=== PATIENT | male | born 1965 | race Caucasian/White ===

== ENCOUNTER 2017-06-02 05:48 | Emergency (ER) | payer OTHER ==
[~2017-06-02] VITALS: Ht 193 cm; Wt 81.8 kg
[2017-06-02] MEDS ORDERED: BACTRIM DS 8001 TAB PO (06:21)
[2017-06-02 06:38] VITALS: BP 128/91; PULSE 97; TEMP 98
[2017-06-05] MEDS ORDERED: CEPHALEXIN500 M1 PO (15:37)
== END 2017-06-02 06:39 | disposition home or self-care (01) ==
LOC: COL.ER 05:48
DX: L02.414 Cutaneous abscess of left upper limb (principal); L03.114 Cellulitis of left upper limb; F17.210 Nicotine dependence, cigarettes, uncomplicated

== ENCOUNTER 2020-08-11 16:48 | Emergency (ER) | payer OTHER ==
[~2020-08-11] VITALS: Ht 193 cm; Wt 81.8 kg
[~2020-08-11 16:48] MED LIST: BACTRIM DS 8001 TAB PO; CEPHALEXIN500 M1 PO
[2020-08-11 18:48] VITALS: BP 144/68; PULSE 84; TEMP 98
== END 2020-08-11 18:47 | disposition home or self-care (01) ==
LOC: COL.ER 16:48
DX: S62.306A Unspecified fracture of fifth metacarpal bone, right hand, initial encounter for closed fracture (principal); V48.6XXA Car passenger injured in noncollision transport accident in traffic accident, initial encounter

== ENCOUNTER 2021-08-24 13:12 | Emergency (ER) | payer OTHER ==
[~2021-08-24] VITALS: Ht 193 cm; Wt 79.5 kg
[2021-08-24 14:25] VITALS: TEMP 98.3
[2021-08-24 15:14] LABS: BASO # 0.1 K/mm3 (0.0-0.2); BASO % 1.4 % (0.0-2.0); EOS # 0.1 K/mm3 (0.0-0.7); EOS % 1.4 % (0.0-4.0); GRAN % 68.6 % (42.2-75.2); LYMPH # 1.3 K/mm3 (1.2-3.4); LYMPH % 22.3 % (20.0-51.0); MEAN CELL VOLUME 79 fl (80.0-100.0); MEAN CORPUSCULAR HGB CONC 32 g/dl (33.0-37.0); MEAN PLATELET VOLUME 9.3 fl (7.4-10.4); MONO # 0.3 K/mm3 (0.1-0.6); MONO % 5.8 % (1.7-9.3); PLATELET COUNT 336 K/mm3 (130-400); RED BLOOD COUNT 3.53 M/mm3 (4.20-5.60); REDCELL DISTRIBUTION WIDTH-CV 21.8 % (11.5-14.5)
[2021-08-24 15:32] LABS: HEMATOCRIT 27.7 % (42.0-52.0); HEMOGLOBIN 8.9 g/dl (13.5-18.0); MEAN CORPUSCULAR HEMOGLOBIN 25 pg (27-31)
[2021-08-24 15:37] LABS: ALBUMIN 2.9 gm/dL (3.5-5.0); BILIRUBIN,TOTAL 0.8 mg/dL (0.2-1.2); C-REACTIVE PROTEIN 0.33 mg/dL (0.00-0.50); CALCIUM 8.2 mg/dL (8.4-10.2); CREATININE, serum 0.68 mg/dL (0.72-1.25); POTASSIUM 3.2 mmol/L (3.5-4.5); TOTAL PROTEIN 7.2 gm/dL (6.2-8.1)
[2021-08-24 16:03] VITALS: BP 143/96
[2021-08-24] MEDS ORDERED: MEDROL 4MG DOSPA4 MG PO (16:04)
[2021-08-24] MEDS ORDERED: NORCO 325 MG-51 TAB PO (16:04)
[2021-08-24 16:13] VITALS: PULSE 98
== END 2021-08-24 16:13 | disposition home or self-care (01) ==
LOC: COL.ER 13:12
PROVIDERS: Family Medicine
DX: G89.29 Other chronic pain (principal); M54.50 Low back pain, unspecified; D64.9 Anemia, unspecified
CPT/HCPCS: J1100; J2360; J7030

== ENCOUNTER 2021-09-17 11:38 | Inpatient (IN) | payer OTHER ==
[~2021-09-17] VITALS: Ht 193 cm; Wt 71.4 kg
[~2021-09-17 11:38] MED LIST changes: +MEDROL 4MG DOSPA4 MG PO; +NORCO 325 MG-51 TAB PO
[2021-09-17 12:10] LABS: BASO % 0.4 % (0.0-2.0); EOS % 0.4 % (0.0-4.0); GRAN # 5.7 K/mm3 (1.4-6.5); GRAN % 75.2 % (42.2-75.2); HEMOGLOBIN 11.3 g/dl (13.5-18.0); LYMPH # 1.1 K/mm3 (1.2-3.4); LYMPH % 14.6 % (20.0-51.0); MEAN CELL VOLUME 83 fl (80.0-100.0); MEAN CORPUSCULAR HEMOGLOBIN 27 pg (27-31); MEAN CORPUSCULAR HGB CONC 33 g/dl (33.0-37.0); MEAN PLATELET VOLUME 10.6 fl (7.4-10.4); MONO # 0.7 K/mm3 (0.1-0.6); MONO % 8.7 % (1.7-9.3); PLATELET COUNT 145 K/mm3 (130-400); REDCELL DISTRIBUTION WIDTH-CV 23.3 % (11.5-14.5)
[2021-09-17 12:16] LABS: HEMATOCRIT 34.7 % (42.0-52.0)
[2021-09-17 12:28] LABS: ALANINE AMINOTRANSFERASE 65 U/L (0-55); ALBUMIN 3.1 gm/dL (3.5-5.0); ALKALINE PHOSPHATASE 360 U/L (40-150); ANION GAP 25 mmol/L (7-16); AST,SGOT 206 U/L (5-34); BILIRUBIN,TOTAL 1.5 mg/dL (0.2-1.2); BLOOD UREA NITROGEN 10 mg/dL (8-26); CALCIUM 8.9 mg/dL (8.4-10.2); CARBON DIOXIDE 19 mmol/L (22-29); CHLORIDE 93 mmol/L (98-107); CREATININE, serum 0.97 mg/dL (0.72-1.25); GLUCOSE 171 mg/dL (70-99); LIPASE 97 U/L (8-78); POTASSIUM 3.3 mmol/L (3.5-4.5); SODIUM 137 mmol/L (136-145); TOTAL PROTEIN 7.9 gm/dL (6.2-8.1)
[2021-09-17 12:36] LABS: TROPONIN-I < 0.010 ng/mL (0.00-0.033)
[2021-09-17 17:10] LABS: INR 1.1 (0.8-3.0); PROTHROMBIN TIME 12.1 SECONDS (9.7-12.8)
--- NOTE | 2021-09-17 17:58 | NUR ---
Patient to room 311 by bed from the ED. A&Ox4. VSS. IV CDI, fluids infusing. Visible tremors in upper extremities, unsteady on feet, 2xassist nursing staff. Nurse oriented the patient to location, room and call light. Detox protocol in place. Seizure precautions in place. Denies pain and discomfort. Patient NPO and verbalizes an understanding. No further needs expressed. Call light within reach. Bed alarm on
[2021-09-17 20:20] VITALS: BP 145/95; PULSE 90; TEMP 97.9
[2021-09-17 20:22] LABS: HEMATOCRIT 26.7 % (42.0-52.0); HEMOGLOBIN 8.8 g/dl (13.5-18.0)
[2021-09-17 22:14] VITALS: BP 142/94; PULSE 110; TEMP 98.4
--- NOTE | 2021-09-17 22:49 | NUR ---
Patient assessed around 1944. Alert and oriented. Complained of level 9 pain to abdomen, and given PRN Morphine for pain as requested. Patient having magnesium and potassium replaced per orders. Started Zosyn late, and called pharmacy to adjust times. Around 2199, patient requesting ice chips. Called EZEQUIEL Calvillo ok for small amount. Patient on alcohol detox protocol. Given Ativan once so far this shift for scoring 5 per protocol. Patient voices no questions, needs, or concerns at this time. In bed with call light within reach. Bed alarm on.
[2021-09-18] VITALS (12 sets, daily range): BP systolic 117–150; BP diastolic 76–100; PULSE 97–115; TEMP 96–98.4
[2021-09-18 02:25] LABS: HEMATOCRIT 26.3 % (42.0-52.0); HEMOGLOBIN 8.5 g/dl (13.5-18.0)
--- NOTE | 2021-09-18 05:41 | NUR ---
Continues on detox protocol, and recieved PRN Ativan during the night per orders. Receive PRN Morphine as requested during the night for abdominal pain. Voices no further questions, needs, or concerns at this time. In bed with call light within reach. Bed alarm on.
[2021-09-18 05:54] LABS: BASO % 0.3 % (0.0-2.0); EOS % 0.7 % (0.0-4.0); GRAN # 4.2 K/mm3 (1.4-6.5); GRAN % 72.4 % (42.2-75.2); LYMPH % 17.8 % (20.0-51.0); MEAN CELL VOLUME 84 fl (80.0-100.0); MEAN CORPUSCULAR HGB CONC 32 g/dl (33.0-37.0); MEAN PLATELET VOLUME 11.2 fl (7.4-10.4); MONO # 0.5 K/mm3 (0.1-0.6); MONO % 8.5 % (1.7-9.3); PLATELET COUNT 115 K/mm3 (130-400); RED BLOOD COUNT 3.29 M/mm3 (4.20-5.60); REDCELL DISTRIBUTION WIDTH-CV 23.2 % (11.5-14.5)
[2021-09-18 06:13] LABS: ALBUMIN 2.4 gm/dL (3.5-5.0); BILIRUBIN,TOTAL 1.3 mg/dL (0.2-1.2); CALCIUM 7.5 mg/dL (8.4-10.2); CREATININE, serum 0.59 mg/dL (0.72-1.25); MAGNESIUM 1.9 mg/dL (1.6-2.6); POTASSIUM 3.8 mmol/L (3.5-4.5); TOTAL PROTEIN 5.7 gm/dL (6.2-8.1)
[2021-09-18 06:16] LABS: HEMATOCRIT 27.6 % (42.0-52.0); HEMOGLOBIN 8.7 g/dl (13.5-18.0); MEAN CORPUSCULAR HEMOGLOBIN 26 pg (27-31)
--- NOTE | 2021-09-18 09:09 | NUR ---
Several visit attempts; Patient using telephone, Cold Storage Supervisor left card offering God's blessings and information regarding the availability of spiritual care at [facility].
[2021-09-18 11:02] LABS: RETIC # 0.05 M/mm3 (0.02-0.16); RETIC % 1.4 % (0.5-3.52)
--- NOTE | 2021-09-18 12:57 | NUR ---
LINNEA LLOYD GAVE ORDER FOR CLD SINCE PT TOLERATING JELLO
[2021-09-18 17:34] LABS: HEMATOCRIT 26.8 % (42.0-52.0); HEMOGLOBIN 8.4 g/dl (13.5-18.0)
--- NOTE | 2021-09-18 18:12 | NUR ---
PT UNSTEADY WITH AMBULATION, IMPULSIVE, BED ALARM SET, ATIVAN GIVEN PER DETOX SCORE, PT WANTING TO LEAVE MULTIPLE TIMES FOR CIGARETTE, EXPLAINED NEED TO STAY FOR ANX TREATMENT AND DETOX TREATMENT, SUPPORTIVE OF THIS PLAN, UPDTATED ON PT CONDITION, PT TOLERATING PO CLD WELL, SOME NAUSEA, NO VOMITING, PAIN INC RECIEVING MORPHINE Q2H
--- NOTE | 2021-09-18 22:30 | NUR ---
Patient assessed around 1940. Alert, oriented, but forgetful/impulsive. Bed alarm on. Reports constant pain to abdomen. Received PRN Morphine for pain, as well as Ativan per detox protocol. Peripheral IV to left forearm with fluids running per orders. In bed with call light within reach. Bed alarm on.
[2021-09-19] VITALS (14 sets, daily range): BP systolic 132–153; BP diastolic 90–110; PULSE 94–138; TEMP 97.1–98.8
--- NOTE | 2021-09-19 05:14 | NUR ---
Continues on detox protocol. Received PRN Ativan per protocol, Morphine for pain to abdomen per orders, as well as Zofran for nausea per orders. Patient impulsive, unsteady on feet. Does not want staff to assist with going to the bathroom, but not aggitated or combative with staff. IV fluids continue per orders, as well as Zosyn. Patient did start hallucinating, seeing a mouse in the room. In bed with call light within reach. Bed alarm on.
--- NOTE | 2021-09-19 07:00 | NUR ---
Report received from Mackenzie MEHTA. PT in bed resting, wanted to get to bathroom, able to get up and ambulate but unsteady gait
[2021-09-19 09:01] LABS: BASO % 0.5 % (0.0-2.0); EOS # 0.2 K/mm3 (0.0-0.7); EOS % 2.1 % (0.0-4.0); GRAN # 5.6 K/mm3 (1.4-6.5); GRAN % 67.1 % (42.2-75.2); LYMPH % 23.9 % (20.0-51.0); MEAN CELL VOLUME 84 fl (80.0-100.0); MEAN CORPUSCULAR HGB CONC 32 g/dl (33.0-37.0); MEAN PLATELET VOLUME 11.4 fl (7.4-10.4); MONO # 0.5 K/mm3 (0.1-0.6); PLATELET COUNT 132 K/mm3 (130-400); REDCELL DISTRIBUTION WIDTH-CV 23.3 % (11.5-14.5)
[2021-09-19 09:03] LABS: HEMATOCRIT 30.2 % (42.0-52.0); HEMOGLOBIN 9.5 g/dl (13.5-18.0); MEAN CORPUSCULAR HEMOGLOBIN 26 pg (27-31)
--- NOTE | 2021-09-19 09:11 | NUR ---
Assessment charted. PT requesting PRN pain, nausea, CIWA meds. Provided per request. PT is able to naswer all orientation questions but is drowsy and lethargic and shakey, temors are noted. PT did ask me if I was done "riding my horse or donkey" but otherwise oriented. Pain is 8/10 to ABD. CLD tray ordered. IVF to LFA. WIll contineu willie oitor.
[2021-09-19 09:29] LABS: ALBUMIN 2.5 gm/dL (3.5-5.0); BILIRUBIN,TOTAL 1.4 mg/dL (0.2-1.2); CALCIUM 8.1 mg/dL (8.4-10.2); CREATININE, serum 0.61 mg/dL (0.72-1.25); POTASSIUM 3.8 mmol/L (3.5-4.5); TOTAL PROTEIN 6.3 gm/dL (6.2-8.1)
--- NOTE | 2021-09-19 18:38 | NUR ---
Pt has rested off and on most of shift. Reports pain at 8.5/10 whenever awake but often falls asleep when talking to me in the room. CIWA scores remain 8 or 9. Unsteady gait, will give report to nightshift nurse who willr esume care.
--- NOTE | 2021-09-19 22:02 | NUR ---
At beginning of shift, thomas aggitated and wanting to leave AMA, stating multiple times that he needed to have a cigarette. EZEQUIEL Calvillo notified and came to talk to patient. Risks of leaving AMA discussed. Patient called , and waited for her to come to hospital to talk to him. Patient given PRN Ativan for detox and Morphine per Karli around 1899. Patient does have nicotine patch one, and received order for nicotine gum. Given per orders. came in around 1944. Able to talk to patient and along with medication, started to rest in bed. Given Ativan again per protocol around 2129, as well as PRN Roxicodone as requested for pain per orders. Linens changed. Patient has not threatened to leave AMA anymore. In bed with call light within reach at this time. Bed alarm on.
[2021-09-20] VITALS (11 sets, daily range): BP systolic 123–143; BP diastolic 83–99; PULSE 102–133; TEMP 97.3–997.5
--- NOTE | 2021-09-20 05:50 | NUR ---
Continues on detox protocol, and received PRN Ativan per orders. Patient has received Roxicodone and Morphine for pain this shift. IV fluids continue per orders. Patient has not had any further comments about leaving AMA since beginning of shift. High fall risk precautions in place. In bed with call light within reach. Bed alarm on.
[2021-09-20 06:46] LABS: BASO % 0.2 % (0.0-2.0); EOS # 0.1 K/mm3 (0.0-0.7); EOS % 2.7 % (0.0-4.0); GRAN # 3.8 K/mm3 (1.4-6.5); GRAN % 73.9 % (42.2-75.2); LYMPH # 0.7 K/mm3 (1.2-3.4); LYMPH % 14.3 % (20.0-51.0); MEAN CELL VOLUME 84 fl (80.0-100.0); MEAN CORPUSCULAR HGB CONC 32 g/dl (33.0-37.0); MEAN PLATELET VOLUME 11.2 fl (7.4-10.4); MONO # 0.4 K/mm3 (0.1-0.6); MONO % 8.5 % (1.7-9.3); PLATELET COUNT 116 K/mm3 (130-400); RED BLOOD COUNT 3.16 M/mm3 (4.20-5.60); REDCELL DISTRIBUTION WIDTH-CV 23.1 % (11.5-14.5)
[2021-09-20 06:54] LABS: HEMATOCRIT 26.4 % (42.0-52.0); HEMOGLOBIN 8.5 g/dl (13.5-18.0); MEAN CORPUSCULAR HEMOGLOBIN 27 pg (27-31)
[2021-09-20 06:58] LABS: ALBUMIN 2.2 gm/dL (3.5-5.0); BILIRUBIN,TOTAL 1.2 mg/dL (0.2-1.2); CALCIUM 7.6 mg/dL (8.4-10.2); CREATININE, serum 0.58 mg/dL (0.72-1.25); MAGNESIUM 1.5 mg/dL (1.6-2.6); POTASSIUM 3.8 mmol/L (3.5-4.5); TOTAL PROTEIN 5.5 gm/dL (6.2-8.1)
--- NOTE | 2021-09-20 08:04 | NUR ---
PATIENT REFUSES TO WEAR SCDS FOR VTE.
[2021-09-21] VITALS (13 sets, daily range): BP systolic 121–145; BP diastolic 79–99; PULSE 104–118; TEMP 97.8–99
--- NOTE | 2021-09-21 05:23 | NUR ---
PATIENT CALM AND COOPERATIVE THROUGHOUT THE SHIFT. ASSISTED PATIENT WITH A SHOWER. PT BRUSHED HIS TEETH, HIS SHAVED AND TRIMMED HIS FACIAL HAIR. PATIENT REPORTS HE IS FEELING MUCH BETTER AND MORE LIKE HIMSELF. CIWA SCORES THIS SHIFT HAVE BEEN 3-4. PATIENTS V/S STABLE AND HE HAS NOT BEEN REQUIRING IV ATIVAN PER CIWA PROTOCOL. HE HAS REPORTED PAIN IN HIS ABD AND GENERALIZED BODY ACHES AND HAS REQUIRED PRN OXY AND PRN MORPHINE.
[2021-09-21 06:31] LABS: MEAN CELL VOLUME 83 fl (80.0-100.0); MEAN CORPUSCULAR HGB CONC 32 g/dl (33.0-37.0); MEAN PLATELET VOLUME 11.1 fl (7.4-10.4); PLATELET COUNT 130 K/mm3 (130-400); RED BLOOD COUNT 3.25 M/mm3 (4.20-5.60); REDCELL DISTRIBUTION WIDTH-CV 23.5 % (11.5-14.5)
[2021-09-21 06:47] LABS: HEMATOCRIT 27.1 % (42.0-52.0); HEMOGLOBIN 8.7 g/dl (13.5-18.0); MEAN CORPUSCULAR HEMOGLOBIN 27 pg (27-31)
[2021-09-21 06:57] LABS: ALBUMIN 2.2 gm/dL (3.5-5.0); BILIRUBIN,TOTAL 1.4 mg/dL (0.2-1.2); CALCIUM 7.7 mg/dL (8.4-10.2); CREATININE, serum 0.55 mg/dL (0.72-1.25); MAGNESIUM 1.6 mg/dL (1.6-2.6); POTASSIUM 3.5 mmol/L (3.5-4.5); TOTAL PROTEIN 5.6 gm/dL (6.2-8.1)
--- NOTE | 2021-09-21 08:41 | NUR ---
Pt assessment complete. Pt is sitting up in bed upon entry, he is A/O x4. His breathing is even and unlabored on RA. Pt denies SOB. Reports back pain 8/10, PRN pain medication administered. Pt reports very mild N/V. Asking about increasing his diet. POC discussed with patient, verbalizes understanding. No needs at this time. Call light within reach.
--- NOTE | 2021-09-21 09:24 | NUR ---
Initial visit; Patient thanked Edger Feeder for stopping by and offering kindness and support. Edger Feeder will follow up.
--- NOTE | 2021-09-21 16:01 | NUR ---
*(LATE ENTRY)* SW met patient to complete intake assessment. When asked if the patient lived in [place] he responded with " well i live here now, how did you find me"? Patient confirms that his emergency contact is his Kathleen, but "i have water in my phone" and couldn't provide me with her phone number. Patient states that he is independent with his ADL's but reports that upon discharge he will need a cane. Patient states he has no oxygen needs at home. PCP is Jaky in [place] and he utilizes [facility] here in [place]. States he has not had any trouble affording his medications in the past but " i will now". Patient does not have a DPOA-HC established at this time. Planning on returning home post discharge. Discharge plan: Home
--- NOTE | 2021-09-21 18:30 | NUR ---
Pt reported intermittent pain through the day, to head, legs, abdomen. PRN pain medications administered. Pt scored intermittently per CIWA protocol. Rested comfortably between. IVF infusing. Bed alarm in place.
[2021-09-22] VITALS (9 sets, daily range): BP systolic 110–143; BP diastolic 78–91; PULSE 99–129; TEMP 97.4–99.5
--- NOTE | 2021-09-22 00:55 | NUR ---
AT 2336, TELE REP CALLS THIS NURSE TO REPORT TACHYCARDIA, PT AMBULATING AT TIME OF CALL. PT STABLE.
[2021-09-22 06:28] LABS: BASO % 0.3 % (0.0-2.0); EOS # 0.1 K/mm3 (0.0-0.7); EOS % 2.4 % (0.0-4.0); GRAN # 3.8 K/mm3 (1.4-6.5); LYMPH % 16.6 % (20.0-51.0); MEAN CELL VOLUME 86 fl (80.0-100.0); MEAN CORPUSCULAR HGB CONC 31 g/dl (33.0-37.0); MONO # 0.8 K/mm3 (0.1-0.6); MONO % 14.4 % (1.7-9.3); PLATELET COUNT 158 K/mm3 (130-400); RED BLOOD COUNT 3.13 M/mm3 (4.20-5.60); REDCELL DISTRIBUTION WIDTH-CV 23.5 % (11.5-14.5)
[2021-09-22 06:37] LABS: HEMATOCRIT 26.9 % (42.0-52.0); HEMOGLOBIN 8.3 g/dl (13.5-18.0); MEAN CORPUSCULAR HEMOGLOBIN 27 pg (27-31)
[2021-09-22 06:43] LABS: ALBUMIN 2.3 gm/dL (3.5-5.0); BILIRUBIN,TOTAL 1.2 mg/dL (0.2-1.2); CALCIUM 8.3 mg/dL (8.4-10.2); CREATININE, serum 0.54 mg/dL (0.72-1.25); POTASSIUM 4.2 mmol/L (3.5-4.5); TOTAL PROTEIN 5.7 gm/dL (6.2-8.1)
--- NOTE | 2021-09-22 08:00 | NUR ---
THE PATIENT IS AWAKE AND SITTING IN BED AT THIS TIME. NO FAMILY PRESENT AT THIS TIME. PAIN IS A 7/10, MEDICATIONS GIVEN PER MAR. THE PATIENT AGREES THAT WE NEED TO NOT USE THE IV MORPHINE DUE TO TRANSITIONING TO GO HOME. PT IS UNDERSTANDING AND WILLING TO WORK WITH IT.
--- NOTE | 2021-09-22 19:21 | NUR ---
This patient has had an uneventful day. CIWA scale has been 1-2 all shift. Pain managed with oral pain medications. Plan for patient to discharge in the morning.
[2021-09-23 02:30] VITALS: BP 143/70; PULSE 103; TEMP 98
--- NOTE | 2021-09-23 05:00 | NUR ---
PT REFUSED 0400 VITALS, THIS NURSE UNABLE TO SCORE CIWA. PT TRENDING LOW. STOOL OCCULT COLLECTED. SINCERE WATTS TRANSPORTED TO LAB AT 0500.
[2021-09-23 05:57] VITALS: BP 135/74; PULSE 103; TEMP 97.8
--- NOTE | 2021-09-23 06:14 | NUR ---
STOOL OCCULT POSITIVE. HOSPITALIST FOLLOWING.
[2021-09-23 06:23] LABS: BASO % 0.5 % (0.0-2.0); EOS # 0.1 K/mm3 (0.0-0.7); EOS % 1.6 % (0.0-4.0); GRAN # 4.1 K/mm3 (1.4-6.5); GRAN % 66.7 % (42.2-75.2); LYMPH # 0.9 K/mm3 (1.2-3.4); MEAN CELL VOLUME 83 fl (80.0-100.0); MEAN CORPUSCULAR HGB CONC 33 g/dl (33.0-37.0); MEAN PLATELET VOLUME 10.9 fl (7.4-10.4); MONO % 16.7 % (1.7-9.3); PLATELET COUNT 217 K/mm3 (130-400); RED BLOOD COUNT 3.29 M/mm3 (4.20-5.60); REDCELL DISTRIBUTION WIDTH-CV 22.4 % (11.5-14.5)
[2021-09-23 06:31] LABS: ALBUMIN 2.3 gm/dL (3.5-5.0); BILIRUBIN,TOTAL 1.5 mg/dL (0.2-1.2); CALCIUM 8.3 mg/dL (8.4-10.2); CREATININE, serum 0.52 mg/dL (0.72-1.25); TOTAL PROTEIN 6.2 gm/dL (6.2-8.1)
[2021-09-23 06:34] LABS: HEMATOCRIT 27.4 % (42.0-52.0); HEMOGLOBIN 8.9 g/dl (13.5-18.0); MEAN CORPUSCULAR HEMOGLOBIN 27 pg (27-31)
--- NOTE | 2021-09-23 07:24 | NUR ---
PT IS LAYING IN BED AT THIS TIME. REFUSED 0400 VITAL SIGNS. NO OTHER CONCERNS.
[2021-09-23 08:14] VITALS: BP 119/82; PULSE 111; TEMP 98.6
[2021-09-23] MEDS ORDERED: ZOFRAN ODT4 MG PO (09:24)
--- NOTE | 2021-09-23 10:26 | NUR ---
Distributor Advertising Material attended clinical rounds with the team and patient is ready for discharge home today. SW met with patient to discuss alcohol resources. Patient is interested and SW provided and reviewed alcohol resource guide. Patient states he also has good family supports and plans to stop drinking. Patient's states his drinking has gone on too long. Patient has a ride home today and no other questions or concerns.
[2021-09-23] MEDS ORDERED: ROXICODONE 55 MG/TAB PO (10:37)
[2021-09-23] MEDS ORDERED: DUO-KAPS1 CAP PO (10:38)
[2021-09-23] MEDS ORDERED: THIAMINE 1100 MG/TAB PO (10:38)
[2021-09-23] MEDS ORDERED: FOLIC ACID 11 MG/TA1 PO (10:38)
== END 2021-09-23 16:45 | disposition home or self-care (01) | DRG 439 ==
LOC: COL.ER 11:38 → MEDICAL 17:22
PROVIDERS: Internal Medicine; Nurse Practitioner Family; Physician Assistant; Student in an Organized Health Care Education/Training Program; ADMIT Student in an Organized Health Care Education/Training Program
DX: K85.20 Alcohol induced acute pancreatitis without necrosis or infection (principal); F10.139 Alcohol abuse with withdrawal, unspecified; K62.5 Hemorrhage of anus and rectum; E44.0 Moderate protein-calorie malnutrition; Z68.1 Body mass index [BMI] 19.9 or less, adult; I10 Essential (primary) hypertension; F17.210 Nicotine dependence, cigarettes, uncomplicated; J44.9 Chronic obstructive pulmonary disease, unspecified; E87.6 Hypokalemia; E83.42 Hypomagnesemia; K76.0 Fatty (change of) liver, not elsewhere classified; D64.9 Anemia, unspecified; I45.81 Long QT syndrome; Z20.822 Contact with and (suspected) exposure to COVID-19
CPT/HCPCS: 99223-AI; 99231-AI; 99232-AI; 99233-AI; 99239; C9113; J2060; J2270; J2405; J2543; J3411; J3475; J3480; J7030; Q9967

== ENCOUNTER 2021-11-11 09:31 | Day surgery (SDC) | payer OTHER ==
[~2021-11-11] VITALS: Ht 193 cm; Wt 75.4 kg
[~2021-11-11 09:31] MED LIST changes: +DUO-KAPS1 CAP PO; +FOLIC ACID 11 MG/TA1 PO; +ROXICODONE 55 MG/TAB PO; +THIAMINE 1100 MG/TAB PO; +ZOFRAN ODT4 MG PO
[2021-11-11 09:48] VITALS: BP 107/80; PULSE 105; TEMP 97.7
[2021-11-11] MEDS ORDERED: NEURONTIN300 MG/CAP PO (09:54)
[2021-11-11 11:05] VITALS: BP 107/78; PULSE 91; TEMP 97.2
--- NOTE | 2021-11-11 11:05 | NUR ---
PT TO BAY 5 FROM PROCEDURE ROOM. RECEIVED REPORT FROM ENDO RN. VS OBTAINED. ORIENTED PT TO ROOM AND CALL LIGHT. VERBALIZED UNDERSTANDING. CALL LIGHT WITHIN REACH. WILL CONTINUE TO MONITOR PT.
[2021-11-11 11:20] VITALS: BP 139/113; PULSE 101
--- NOTE | 2021-11-11 11:20 | NUR ---
PT TOLERATING COKE, RENETTA CRACKERS, AND PUDDING. DENIES ANY NEEDS AT THIS TIME. WILL CONTINUE TO MONITOR PT. PT MOVING ARM DURING BP TAKING.
[2021-11-11 11:35] VITALS: BP 137/98; PULSE 89
--- NOTE | 2021-11-11 11:35 | NUR ---
PT CONTINUES TO TOLERATE PO WITHOUT DIFFICULTY. WILL CONTINUE TO MONITOR PT.
[2021-11-11 11:45] VITALS: BP 135/90; PULSE 81
--- NOTE | 2021-11-11 11:45 | NUR ---
PT DENIES ANY NEEDS AT THIS TIME.
[2021-11-11 12:00] VITALS: BP 131/86; PULSE 79
--- NOTE | 2021-11-11 12:00 | NUR ---
PT READY FOR DISCHARGE.
--- NOTE | 2021-11-11 12:05 | NUR ---
IV DC'D. PT TOLERATED WELL.
--- NOTE | 2021-11-11 12:10 | NUR ---
DISCHARGE EDUCATION COMPLETED WITH PT AND HIS DAUGHTER. THEY VERBALIZED UNDERSTANDING OF HOME AND FOLLOW UP CARE. ALL QUESTIONS ANSWERED. DISCHARGE PAPERWORK GIVEN TO PT.
--- NOTE | 2021-11-11 12:35 | NUR ---
PT OFF UNIT PER WHEELCHAIR. PT DISCHARGE TO HOME WITH DAUGHTER PER PERSONAL VEHICLE.
== END 2021-11-11 12:35 | disposition home or self-care (01) ==
LOC: SDCO 09:31
DX: K92.1 Melena (principal); D12.3 Benign neoplasm of transverse colon; D12.5 Benign neoplasm of sigmoid colon; K64.1 Second degree hemorrhoids; K85.20 Alcohol induced acute pancreatitis without necrosis or infection; R79.89 Other specified abnormal findings of blood chemistry; K76.0 Fatty (change of) liver, not elsewhere classified; D53.0 Protein deficiency anemia; K29.50 Unspecified chronic gastritis without bleeding; K31.89 Other diseases of stomach and duodenum; F17.210 Nicotine dependence, cigarettes, uncomplicated; Z79.899 Other long term (current) drug therapy
CPT/HCPCS: J2704; J7120

== ENCOUNTER → 2021-12-01 | Outpatient (CLI) | payer OTHER ==
[~2021-12-01] MED LIST changes: +NEURONTIN300 MG/CAP PO
== END ==
LOC: COL.RAD 11:41
DX: M48.02 Spinal stenosis, cervical region (principal)
CPT/HCPCS: A9575

== ENCOUNTER → 2022-02-18 | Outpatient (CLI) | payer OTHER | LOC: COL.RAD 08:22 | DX: K85.20 Alcohol induced acute pancreatitis without necrosis or infection (principal); K76.0 Fatty (change of) liver, not elsewhere classified; D53.0 Protein deficiency anemia; K92.1 Melena; R19.7 Diarrhea, unspecified; R74.8 Abnormal levels of other serum enzymes | CPT/HCPCS: Q9967 ==

== ENCOUNTER → 2022-04-08 | Outpatient (CLI) | payer OTHER | LOC: COL.VAS 08:01 | DX: M79.605 Pain in left leg (principal); M79.604 Pain in right leg; Z87.891 Personal history of nicotine dependence ==